=== PATIENT | male | born 1940 | race Caucasian/White ===

== ENCOUNTER 2021-10-20 11:20 | Emergency (ER) | payer MEDICARE, BC ==
[2021-10-20 12:37] LABS: CORONAVIRUS COVID-19 NAA POSITIVE (NEGATIVE)
[2021-10-20] MEDS ORDERED: diphenhydrAMINE 50 MG/ML SDV IVPUSH PRN (12:58)
[2021-10-20] MEDS ORDERED: Sodium Chloride 0.9% 500 ML IV ONE (12:58)
[2021-10-20] MEDS ORDERED: Famotidine 20 MG/2 ML SDV IVPUSH PRN (12:58)
[2021-10-20] MEDS ORDERED: EPINEPHrine 1 MG/ML SDV IM PRN (12:58)
[2021-10-20] MEDS ORDERED: methylPREDNISolone Sodium Succinate 125 MG/2 ML SDV IVPUSH PRN (12:58)
[2021-10-20] MEDS ORDERED: Sodium Chloride 0.9% 10 ML Syringe FLUSH SCH (13:00)
== END 2021-10-20 15:10 | disposition home or self-care (01) ==
LOC: JD.ED 11:20
DX: U07.1 COVID-19 (principal); Z88.0 Allergy status to penicillin
CPT/HCPCS: 0241U; 36415; 80053; 83735; 85025; 86140; 96360; 99283; J3490; J7030; M0222; Q0222

== ENCOUNTER 2022-05-21 08:42 | Inpatient (IN) | payer MEDICARE, BC ==
[2022-05-21] MEDS ORDERED: Sodium Chloride 0.9% 10 ML Syringe FLUSH PRN (08:50)
[2022-05-21] MEDS ORDERED: Furosemide 40 MG/4 ML VIAL IVPUSH ONE ×2 (10:27→12:01)
[2022-05-21] MEDS ORDERED: Heparin Sodium 5,000 Units/ML Vial IVPUSH ONE (12:03)
[2022-05-21] MEDS ORDERED: Docusate Sodium 100 MG Cap PO PRN (12:10)
[2022-05-21] MEDS ORDERED: Ondansetron 4 MG/2 ML SDV IV PRN (12:10)
[2022-05-21] MEDS ORDERED: Acetaminophen 325 MG Tab PO PRN (12:10)
[2022-05-21] MEDS ORDERED: Heparin Sodium 5,000 Units/ML Vial SUBCUT SCH (12:15)
[2022-05-21] MEDS ORDERED: Heparin Sodium/D5W 25,000 UNITS/500 ML BAG IV SCH (12:15)
[2022-05-21] MEDS: Furosemide 100 MG in Sodium Chloride 0.9% 90 ML IV SCH (12:52)
[2022-05-21] MEDS ORDERED: Aspirin 325 MG Tab.EC PO ONE (13:00)
[2022-05-21] MEDS: Insulin Lispro 100 Unit/ML 3 ML KwikPen SUBCUT SCH (17:11)
[2022-05-21] MEDS ORDERED: Warfarin Sliding Scale PO SCH (18:00)
[2022-05-21] MEDS: Metoprolol Tartrate 25 MG Tab PO SCH (20:34)
[2022-05-21] MEDS ORDERED: Doxazosin 2 MG Tab PO SCH (21:00)
[2022-05-22] MEDS: Insulin Lispro 100 Unit/ML 3 ML KwikPen SUBCUT SCH ×2 (00:02→07:30)
[2022-05-22] MEDS: Metoprolol Tartrate 25 MG Tab PO SCH (08:02)
[2022-05-22] MEDS ORDERED: atorvaSTATin 20 MG Tab PO SCH (09:00)
[2022-05-22] MEDS ORDERED: Aspirin 81 MG Tab.Chew PO SCH (09:00)
[2022-05-22] MEDS: Furosemide 100 MG in Sodium Chloride 0.9% 90 ML IV SCH (10:46)
[2022-05-22] MEDS ORDERED: Warfarin 2.5 MG Tab PO SCH (18:00)
== END 2022-05-22 13:14 | DRG 280 ==
LOC: JD.ED 08:42 → JD.MS 11:29
PROVIDERS: ADMIT Hospitalist; ATTEND Hospitalist
DX: I50.9 Heart failure, unspecified (principal); R09.02 Hypoxemia; I13.0 Hypertensive heart and chronic kidney disease with heart failure and stage 1 through stage 4 chronic kidney disease, or unspecified chronic kidney disease; I50.43 Acute on chronic combined systolic (congestive) and diastolic (congestive) heart failure; I21.4 Non-ST elevation (NSTEMI) myocardial infarction; N17.9 Acute kidney failure, unspecified; N18.9 Chronic kidney disease, unspecified; N18.4 Chronic kidney disease, stage 4 (severe); I44.7 Left bundle-branch block, unspecified; I44.0 Atrioventricular block, first degree; Z66 Do not resuscitate; F41.9 Anxiety disorder, unspecified; N40.0 Benign prostatic hyperplasia without lower urinary tract symptoms; I25.10 Atherosclerotic heart disease of native coronary artery without angina pectoris; M10.9 Gout, unspecified; G47.00 Insomnia, unspecified; E11.22 Type 2 diabetes mellitus with diabetic chronic kidney disease; D63.1 Anemia in chronic kidney disease; I87.2 Venous insufficiency (chronic) (peripheral); F32.89 Other specified depressive episodes; E78.5 Hyperlipidemia, unspecified; E66.9 Obesity, unspecified; I08.3 Combined rheumatic disorders of mitral, aortic and tricuspid valves; Z79.84 Long term (current) use of oral hypoglycemic drugs; Z88.0 Allergy status to penicillin; Z86.718 Personal history of other venous thrombosis and embolism; Z85.828 Personal history of other malignant neoplasm of skin; Z79.899 Other long term (current) drug therapy; Z79.01 Long term (current) use of anticoagulants; Z98.890 Other specified postprocedural states; Z68.32 Body mass index [BMI] 32.0-32.9, adult
CPT/HCPCS: 36415; 71045; 71045-26; 80048; 80053; 82947; 83735; 83880; 84484; 85025; 85379; 85610; 85730; 93005; 93010; 93307; 94760; 94761; 96374; 99284; 99285-25; A9270-GY; J1815; J1940; J3490

== ENCOUNTER 2022-09-26 10:52 | Inpatient (IN) | payer MEDICARE, BC ==
[2022-09-26] MEDS ORDERED: Sodium Chloride 0.9% 10 ML Syringe FLUSH PRN (11:05)
[2022-09-26 11:11] LABS: BASOPHILS ABSOLUTE AUTO 0.06 K/mm3 (0.01-0.08); BASOPHILS PERCENT AUTO 0.6 % (0.1-1.2); EOSINOPHILS ABSOLUTE AUTO 0.46 K/mm3 (0.04-0.54); EOSINOPHILS PERCENT AUTO 4.5 (0.8-7.0); HEMATOCRIT 31.4 % (40.1-51.0); HEMOGLOBIN 10.1 gm/dl (13.7-17.5); IMMATURE GRAN ABSOLUTE AUTO 0.02 K/mm3 (0.00-0.10); IMMATURE GRAN PERCENT AUTO 0.2 % (<=1.0); LYMPHOCYTES ABSOLUTE AUTO 1.11 K/mm3 (1.32-3.57); MEAN CORPUSCULAR HEMOGLOBIN 27.3 pg (25.7-32.2); MEAN CORPUSCULAR HGB CONC 32.2 g/dl (32.2-35.5); MEAN CORPUSCULAR VOLUME 84.9 fl (79.0-92.2); MEAN PLATELET VOLUME 9.9 fl (9.4-12.3); MONOCYTES ABSOLUTE AUTO 1.37 K/mm3 (0.30-0.82); MONOCYTES PERCENT AUTO 13.5 % (5.3-12.2); NEUTROPHILS ABSOLUTE AUTO 7.11 K/mm3 (1.78-5.38); NEUTROPHILS PERCENT AUTO 70.2 % (34.0-67.9); PLATELET COUNT,PLT 204 K/mm3 (163-337); WHITE BLOOD CELL COUNT,WBC 10.13 K/mm3 (4.23-9.07)
[2022-09-26 11:40] LABS: A/G RATIO 0.7 (1-2); ALBUMIN 2.9 g/dl (3.4-5.0); ANION GAP 14.6 (5-15); BILIRUBIN TOTAL 0.7 mg/dL (0.2-1.0); BUN/CREATININE RATIO 13.5 (14-18); CREATININE 2.6 mg/dL (0.7-1.3); EST CRCL DRUG DOSING (CG) 21.53 mL/min; MAGNESIUM 1.9 mg/dL (1.8-2.4); POTASSIUM,K 3.6 mEq/L (3.5-5.1)
[2022-09-26 11:48] LABS: CORONAVIRUS COVID-19 NAA NEGATIVE (NEGATIVE); INFLUENZA A NAA NEGATIVE (NEGATIVE); RESPIRATORY SYNCYTIAL VIR NAA NEGATIVE (NEGATIVE)
[2022-09-26 11:59] LABS: INR 1.02
[2022-09-26 12:00] LABS: PTT,PARTIAL THROMBOPLSTIN TIME 30.2 SECONDS (21.7-31.4)
[2022-09-26 12:19] LABS: PROTHROMBIN TIME 10.9 SECONDS (9.7-12.0)
[2022-09-26] MEDS ORDERED: Bumetanide 1 MG/4 ML MDV IVPUSH ONE (14:30)
[2022-09-26] MEDS ORDERED: Sennosides/Docusate Sodium 50-8.6 MG Tab PO PRN (14:51)
[2022-09-26] MEDS ORDERED: Polyethylene Glycol 3350 Powder 17 GM Packet PO PRN (14:51)
[2022-09-26] MEDS ORDERED: Docusate Sodium 100 MG Cap PO PRN (14:51)
[2022-09-26] MEDS ORDERED: ERGOCALCIFEROL 1.25 MG PO SCH (15:00)
[2022-09-26] MEDS ORDERED: Warfarin 5 MG Tab PO SCH (15:00)
[2022-09-26] MEDS ORDERED: Glucose Gel 15 GM in 37.5 GM Tube PO PRN (15:48)
[2022-09-26 16:21] LABS: HEMOGLOBIN A1C 6.6 %
[2022-09-26] MEDS: Insulin Lispro 100 Unit/ML 3 ML KwikPen SUBCUT SCH ×2 (18:02→20:43)
[2022-09-26] MEDS: Sodium Bicarbonate 650 MG Tab PO SCH (20:39)
[2022-09-26] MEDS: Doxazosin 2 MG Tab PO SCH (20:39)
[2022-09-26] MEDS: Apixaban 2.5 MG Tab PO SCH (20:39)
[2022-09-26] MEDS: Metoprolol Tartrate 25 MG Tab PO SCH (20:40)
[2022-09-26] MEDS ORDERED: METRONIDAZOLE TOP SCH (21:00)
[2022-09-26] MEDS ORDERED: Apixaban 2.5 MG Tab PO SCH (21:00)
[2022-09-26] MEDS ORDERED: traZODone 50 MG Tab PO PRN (21:00)
[2022-09-26] MEDS ORDERED: Insulin Glargine,Human Rec. Analog 100 Units/ML 3 ML Pen SUBCUT SCH (21:00)
[2022-09-27 05:18] LABS: BASOPHILS ABSOLUTE AUTO 0.04 K/mm3 (0.01-0.08); BASOPHILS PERCENT AUTO 0.4 % (0.1-1.2); EOSINOPHILS ABSOLUTE AUTO 0.02 K/mm3 (0.04-0.54); EOSINOPHILS PERCENT AUTO 0.2 (0.8-7.0); HEMATOCRIT 31.2 % (40.1-51.0); HEMOGLOBIN 10.1 gm/dl (13.7-17.5); IMMATURE GRAN ABSOLUTE AUTO 0.01 K/mm3 (0.00-0.10); IMMATURE GRAN PERCENT AUTO 0.1 % (<=1.0); LYMPHOCYTES ABSOLUTE AUTO 0.69 K/mm3 (1.32-3.57); LYMPHOCYTES PERCENT AUTO 7.1 % (21.8-53.1); MEAN CORPUSCULAR HEMOGLOBIN 27.6 pg (25.7-32.2); MEAN CORPUSCULAR HGB CONC 32.4 g/dl (32.2-35.5); MEAN CORPUSCULAR VOLUME 85.2 fl (79.0-92.2); MEAN PLATELET VOLUME 10.6 fl (9.4-12.3); MONOCYTES ABSOLUTE AUTO 1.57 K/mm3 (0.30-0.82); MONOCYTES PERCENT AUTO 16.2 % (5.3-12.2); NEUTROPHILS ABSOLUTE AUTO 7.34 K/mm3 (1.78-5.38); PLATELET COUNT,PLT 208 K/mm3 (163-337); RED BLOOD CELL COUNT 3.66 M/mm3 (4.63-6.08); WHITE BLOOD CELL COUNT,WBC 9.67 K/mm3 (4.23-9.07)
[2022-09-27 05:38] LABS: ANION GAP 15.7 (5-15); BUN/CREATININE RATIO 14.4 (14-18); CALCIUM 8.8 mg/dL (8.5-10.1); CREATININE 2.5 mg/dL (0.7-1.3); EST CRCL DRUG DOSING (CG) 22.39 mL/min; MAGNESIUM 1.9 mg/dL (1.8-2.4); POTASSIUM,K 3.7 mEq/L (3.5-5.1)
[2022-09-27 06:16] LABS: INR 1.03; SLIDE REVIEW ABNORMAL SMEAR
[2022-09-27] MEDS: Insulin Lispro 100 Unit/ML 3 ML KwikPen SUBCUT SCH ×4 (07:41→21:35)
[2022-09-27] MEDS ORDERED: Bumetanide 1 MG/4 ML MDV IVPUSH ONE ×2 (07:59→14:04)
[2022-09-27] MEDS: atorvaSTATin 20 MG Tab PO SCH (08:18)
[2022-09-27] MEDS: Allopurinol 100 MG Tab PO SCH (08:18)
[2022-09-27] MEDS: Metoprolol Tartrate 25 MG Tab PO SCH ×2 (08:19→20:35)
[2022-09-27] MEDS: Sodium Bicarbonate 650 MG Tab PO SCH ×2 (08:20→20:37)
[2022-09-27] MEDS: amLODIPine 10 MG Tab PO SCH (08:20)
[2022-09-27] MEDS: Apixaban 2.5 MG Tab PO SCH ×2 (08:20→20:34)
[2022-09-27] MEDS: Calcitriol 0.25 MCG Cap PO SCH (08:20)
[2022-09-27] MEDS ORDERED: CLINDAMYCIN PHOSPHATE TOP SCH (09:00)
[2022-09-27] MEDS ORDERED: Losartan 100 MG Tab PO SCH ×2 (09:00)
[2022-09-27] MEDS ORDERED: UBIDECARENONE 60 MG PO SCH (09:00)
[2022-09-27] MEDS: Clopidogrel 75 MG Tab PO SCH (09:19)
[2022-09-27] MEDS ORDERED: Metolazone 2.5 MG Tab PO ONE (14:04)
[2022-09-27] MEDS: Doxazosin 2 MG Tab PO SCH (20:37)
[2022-09-28 05:45] LABS: ANION GAP 12.3 (5-15); BUN/CREATININE RATIO 15.9 (14-18); CALCIUM 8.7 mg/dL (8.5-10.1); CREATININE 2.9 mg/dL (0.7-1.3); EST CRCL DRUG DOSING (CG) 19.3 mL/min; MAGNESIUM 1.8 mg/dL (1.8-2.4); POTASSIUM,K 3.3 mEq/L (3.5-5.1)
[2022-09-28] MEDS ORDERED: Potassium Chloride 20 MEQ Tab.ER PO ONE (08:53)
[2022-09-28] MEDS: Insulin Lispro 100 Unit/ML 3 ML KwikPen SUBCUT SCH ×4 (09:26→21:41)
[2022-09-28] MEDS: Clopidogrel 75 MG Tab PO SCH (09:26)
[2022-09-28] MEDS: Metoprolol Tartrate 25 MG Tab PO SCH ×2 (09:27→21:15)
[2022-09-28] MEDS: Allopurinol 100 MG Tab PO SCH (09:27)
[2022-09-28] MEDS: atorvaSTATin 20 MG Tab PO SCH (09:28)
[2022-09-28] MEDS: amLODIPine 10 MG Tab PO SCH (09:28)
[2022-09-28] MEDS: Sodium Bicarbonate 650 MG Tab PO SCH ×2 (09:28→21:15)
[2022-09-28] MEDS: Apixaban 2.5 MG Tab PO SCH ×2 (09:28→21:15)
[2022-09-28] MEDS: Doxazosin 2 MG Tab PO SCH (21:12)
[2022-09-29 05:52] LABS: ANION GAP 12.5 (5-15); BUN/CREATININE RATIO 17.1 (14-18); CREATININE 2.8 mg/dL (0.7-1.3); EST CRCL DRUG DOSING (CG) 19.99 mL/min; MAGNESIUM 1.8 mg/dL (1.8-2.4); POTASSIUM,K 3.5 mEq/L (3.5-5.1)
[2022-09-29] MEDS: Insulin Lispro 100 Unit/ML 3 ML KwikPen SUBCUT SCH ×4 (08:29→22:05)
[2022-09-29] MEDS: amLODIPine 10 MG Tab PO SCH (08:33)
[2022-09-29] MEDS: atorvaSTATin 20 MG Tab PO SCH (08:33)
[2022-09-29] MEDS: Apixaban 2.5 MG Tab PO SCH ×2 (08:34→21:03)
[2022-09-29] MEDS: Metoprolol Tartrate 25 MG Tab PO SCH ×2 (08:34→21:04)
[2022-09-29] MEDS: Sodium Bicarbonate 650 MG Tab PO SCH ×2 (08:34→21:01)
[2022-09-29] MEDS: Clopidogrel 75 MG Tab PO SCH (08:34)
[2022-09-29] MEDS: Allopurinol 100 MG Tab PO SCH (08:35)
[2022-09-29] MEDS: Bumetanide 1 MG/4 ML MDV IVPUSH SCH ×2 (10:35→15:01)
[2022-09-29] MEDS: Doxazosin 2 MG Tab PO SCH (21:01)
[2022-09-30] MEDS: Bumetanide 1 MG/4 ML MDV IVPUSH SCH ×2 (05:26→13:43)
[2022-09-30 05:43] LABS: ANION GAP 10.4 (5-15); BUN/CREATININE RATIO 18.3 (14-18); CALCIUM 8.7 mg/dL (8.5-10.1); CREATININE 2.9 mg/dL (0.7-1.3); EST CRCL DRUG DOSING (CG) 19.3 mL/min; MAGNESIUM 1.6 mg/dL (1.8-2.4); POTASSIUM,K 3.4 mEq/L (3.5-5.1)
[2022-09-30] MEDS ORDERED: Potassium Chloride 20 MEQ Tab.ER PO ONE (06:07)
[2022-09-30] MEDS: Insulin Lispro 100 Unit/ML 3 ML KwikPen SUBCUT SCH ×4 (07:47→21:52)
[2022-09-30] MEDS: Metoprolol Tartrate 25 MG Tab PO SCH ×2 (08:35→20:42)
[2022-09-30] MEDS: Apixaban 2.5 MG Tab PO SCH ×2 (08:38→20:27)
[2022-09-30] MEDS: amLODIPine 10 MG Tab PO SCH (08:38)
[2022-09-30] MEDS: Clopidogrel 75 MG Tab PO SCH (08:38)
[2022-09-30] MEDS: Sodium Bicarbonate 650 MG Tab PO SCH ×2 (08:38→20:27)
[2022-09-30] MEDS: Calcitriol 0.25 MCG Cap PO SCH (08:39)
[2022-09-30] MEDS: atorvaSTATin 20 MG Tab PO SCH (08:39)
[2022-09-30] MEDS: Allopurinol 100 MG Tab PO SCH (08:39)
[2022-09-30] MEDS ORDERED: Magnesium Sulfate/Water 2 GM in Premix Bag 1 BAG IV ONE (09:00)
[2022-09-30] MEDS ORDERED: Magnesium Sulfate (4.06 MEQ/ML) 5 GM/10 ML SDV IV ONE (09:00)
[2022-09-30] MEDS: guaiFENesin 600 MG Tab.ER PO SCH ×2 (12:01→20:27)
[2022-09-30] MEDS: Metolazone 2.5 MG Tab PO SCH (13:43)
[2022-09-30] MEDS: Doxazosin 2 MG Tab PO SCH (20:26)
[2022-10-01] MEDS: Bumetanide 1 MG/4 ML MDV IVPUSH SCH ×2 (05:18→13:47)
[2022-10-01] MEDS: Metolazone 2.5 MG Tab PO SCH ×2 (05:19→13:47)
[2022-10-01 06:04] LABS: BASOPHILS ABSOLUTE AUTO 0.05 K/mm3 (0.01-0.08); BASOPHILS PERCENT AUTO 0.6 % (0.1-1.2); EOSINOPHILS ABSOLUTE AUTO 0.63 K/mm3 (0.04-0.54); EOSINOPHILS PERCENT AUTO 7.5 (0.8-7.0); HEMATOCRIT 29.2 % (40.1-51.0); HEMOGLOBIN 9.5 gm/dl (13.7-17.5); IMMATURE GRAN ABSOLUTE AUTO 0.01 K/mm3 (0.00-0.10); IMMATURE GRAN PERCENT AUTO 0.1 % (<=1.0); LYMPHOCYTES ABSOLUTE AUTO 1.28 K/mm3 (1.32-3.57); LYMPHOCYTES PERCENT AUTO 15.3 % (21.8-53.1); MEAN CORPUSCULAR HEMOGLOBIN 27.7 pg (25.7-32.2); MEAN CORPUSCULAR HGB CONC 32.5 g/dl (32.2-35.5); MEAN CORPUSCULAR VOLUME 85.1 fl (79.0-92.2); MEAN PLATELET VOLUME 10.6 fl (9.4-12.3); MONOCYTES ABSOLUTE AUTO 1.29 K/mm3 (0.30-0.82); MONOCYTES PERCENT AUTO 15.4 % (5.3-12.2); NEUTROPHILS ABSOLUTE AUTO 5.09 K/mm3 (1.78-5.38); NEUTROPHILS PERCENT AUTO 61.1 % (34.0-67.9); PLATELET COUNT,PLT 240 K/mm3 (163-337); RED BLOOD CELL COUNT 3.43 M/mm3 (4.63-6.08); WHITE BLOOD CELL COUNT,WBC 8.35 K/mm3 (4.23-9.07)
[2022-10-01 06:10] LABS: ANION GAP 9.4 (5-15); BUN/CREATININE RATIO 20.4 (14-18); CALCIUM 9.2 mg/dL (8.5-10.1); CREATININE 2.8 mg/dL (0.7-1.3); EST CRCL DRUG DOSING (CG) 19.99 mL/min; POTASSIUM,K 3.4 mEq/L (3.5-5.1)
[2022-10-01] MEDS: Insulin Lispro 100 Unit/ML 3 ML KwikPen SUBCUT SCH ×4 (07:02→21:06)
[2022-10-01] MEDS: guaiFENesin 600 MG Tab.ER PO SCH ×2 (08:12→21:03)
[2022-10-01] MEDS: atorvaSTATin 20 MG Tab PO SCH (08:13)
[2022-10-01] MEDS: Sodium Bicarbonate 650 MG Tab PO SCH ×2 (08:13→21:02)
[2022-10-01] MEDS: Clopidogrel 75 MG Tab PO SCH (08:13)
[2022-10-01] MEDS: Apixaban 2.5 MG Tab PO SCH ×2 (08:13→21:03)
[2022-10-01] MEDS: Allopurinol 100 MG Tab PO SCH (08:13)
[2022-10-01] MEDS: amLODIPine 10 MG Tab PO SCH (09:35)
[2022-10-01] MEDS: Metoprolol Tartrate 25 MG Tab PO SCH ×2 (09:36→23:45)
[2022-10-01] MEDS: Potassium Chloride 10 MEQ in Premix Bag 1 BAG IV SCH ×4 (09:41→14:57)
[2022-10-01] MEDS: diphenhydrAMINE/Zinc Acetate 2% Crm 28.4 GM Tube TOP PRN ×2 (13:46→21:04)
[2022-10-01] MEDS: Doxazosin 2 MG Tab PO SCH (21:03)
[2022-10-02] MEDS: diphenhydrAMINE/Zinc Acetate 2% Crm 28.4 GM Tube TOP PRN ×2 (04:14→14:14)
[2022-10-02 05:46] LABS: ANION GAP 11.6 (5-15); BLOOD UREA NITROGEN,BUN 56 mg/dL (7-18); BUN/CREATININE RATIO 19.3 (14-18); CALCIUM 9.4 mg/dL (8.5-10.1); CARBON DIOXIDE,CO2 32 mEq/L (21-32); CHLORIDE,CL 100 mEq/L (98-107); CREATININE 2.9 mg/dL (0.7-1.3); ESTIMATED GFR 21 mL/min (>60); GLUCOSE RANDOM 132 mg/dL (70-99); POTASSIUM,K 3.6 mEq/L (3.5-5.1); SODIUM,NA 140 mEq/L (136-145)
[2022-10-02] MEDS: Bumetanide 1 MG/4 ML MDV IVPUSH SCH ×2 (06:06→14:13)
[2022-10-02] MEDS: Metolazone 2.5 MG Tab PO SCH ×2 (06:06→14:13)
[2022-10-02] MEDS: Insulin Lispro 100 Unit/ML 3 ML KwikPen SUBCUT SCH ×4 (07:22→20:35)
[2022-10-02] MEDS: Metoprolol Tartrate 25 MG Tab PO SCH ×2 (09:21→20:25)
[2022-10-02] MEDS: Calcitriol 0.25 MCG Cap PO SCH (09:21)
[2022-10-02] MEDS: Clopidogrel 75 MG Tab PO SCH (09:21)
[2022-10-02] MEDS: atorvaSTATin 20 MG Tab PO SCH (09:22)
[2022-10-02] MEDS: Apixaban 2.5 MG Tab PO SCH ×2 (09:22→20:24)
[2022-10-02] MEDS: Sodium Bicarbonate 650 MG Tab PO SCH ×2 (09:22→20:24)
[2022-10-02] MEDS: amLODIPine 10 MG Tab PO SCH (09:22)
[2022-10-02] MEDS: Allopurinol 100 MG Tab PO SCH (09:22)
[2022-10-02] MEDS: guaiFENesin 600 MG Tab.ER PO SCH ×2 (09:23→20:24)
[2022-10-02] MEDS: Doxazosin 2 MG Tab PO SCH (20:24)
[2022-10-03] MEDS: diphenhydrAMINE/Zinc Acetate 2% Crm 28.4 GM Tube TOP PRN ×2 (00:01→17:40)
[2022-10-03] MEDS ORDERED: diphenhydrAMINE 25 MG Cap PO ONE (04:32)
[2022-10-03] MEDS: Metolazone 2.5 MG Tab PO SCH ×2 (05:01→13:43)
[2022-10-03] MEDS: Bumetanide 1 MG/4 ML MDV IVPUSH SCH ×2 (05:01→13:42)
[2022-10-03] MEDS: Insulin Lispro 100 Unit/ML 3 ML KwikPen SUBCUT SCH ×4 (06:49→20:38)
[2022-10-03 06:58] LABS: ANION GAP 12.4 (5-15); BLOOD UREA NITROGEN,BUN 64 mg/dL (7-18); CALCIUM 9.2 mg/dL (8.5-10.1); CARBON DIOXIDE,CO2 31 mEq/L (21-32); CHLORIDE,CL 101 mEq/L (98-107); CREATININE 3.2 mg/dL (0.7-1.3); ESTIMATED GFR 18 mL/min (>60); GLUCOSE RANDOM 130 mg/dL (70-99); POTASSIUM,K 3.4 mEq/L (3.5-5.1); SODIUM,NA 141 mEq/L (136-145)
[2022-10-03] MEDS: Sodium Bicarbonate 650 MG Tab PO SCH ×2 (09:53→20:38)
[2022-10-03] MEDS: Metoprolol Tartrate 25 MG Tab PO SCH ×2 (09:53→20:37)
[2022-10-03] MEDS: Allopurinol 100 MG Tab PO SCH (09:53)
[2022-10-03] MEDS: amLODIPine 10 MG Tab PO SCH (09:54)
[2022-10-03] MEDS: atorvaSTATin 20 MG Tab PO SCH (09:54)
[2022-10-03] MEDS: Clopidogrel 75 MG Tab PO SCH (09:54)
[2022-10-03] MEDS: Apixaban 2.5 MG Tab PO SCH ×2 (09:54→20:38)
[2022-10-03] MEDS: guaiFENesin 600 MG Tab.ER PO SCH ×2 (09:55→20:38)
[2022-10-03] MEDS: Doxazosin 2 MG Tab PO SCH (20:37)
[2022-10-03] MEDS: Acetaminophen 325 MG Tab PO PRN (21:45)
[2022-10-04] MEDS: Metolazone 2.5 MG Tab PO SCH ×2 (05:43→13:20)
[2022-10-04] MEDS: Bumetanide 1 MG/4 ML MDV IVPUSH SCH ×2 (05:43→13:20)
[2022-10-04] MEDS: Acetaminophen 325 MG Tab PO PRN (05:43)
[2022-10-04 07:15] LABS: ANION GAP 11.4 (5-15); BLOOD UREA NITROGEN,BUN 75 mg/dL (7-18); BUN/CREATININE RATIO 19.7 (14-18); CARBON DIOXIDE,CO2 32 mEq/L (21-32); CHLORIDE,CL 100 mEq/L (98-107); CREATININE 3.8 mg/dL (0.7-1.3); ESTIMATED GFR 15 mL/min (>60); GLUCOSE RANDOM 146 mg/dL (70-99); POTASSIUM,K 3.4 mEq/L (3.5-5.1); SODIUM,NA 140 mEq/L (136-145)
[2022-10-04] MEDS: Insulin Lispro 100 Unit/ML 3 ML KwikPen SUBCUT SCH ×2 (07:39→13:10)
[2022-10-04] MEDS ORDERED: Potassium Chloride 20 MEQ Tab.ER PO ONE (07:39)
[2022-10-04] MEDS: Sodium Bicarbonate 650 MG Tab PO SCH (08:04)
[2022-10-04] MEDS: amLODIPine 10 MG Tab PO SCH (08:05)
[2022-10-04] MEDS: Metoprolol Tartrate 25 MG Tab PO SCH (08:05)
[2022-10-04] MEDS: Calcitriol 0.25 MCG Cap PO SCH (08:05)
[2022-10-04] MEDS: Apixaban 2.5 MG Tab PO SCH (08:06)
[2022-10-04] MEDS: Allopurinol 100 MG Tab PO SCH (08:06)
[2022-10-04] MEDS: Clopidogrel 75 MG Tab PO SCH (08:06)
[2022-10-04] MEDS: atorvaSTATin 20 MG Tab PO SCH (08:06)
[2022-10-04] MEDS: guaiFENesin 600 MG Tab.ER PO SCH (08:06)
== END 2022-10-04 17:09 | disposition home or self-care (01) | DRG 291 ==
LOC: JD.ED 10:52 → UNDOADMIN 14:12 → JD.MS 14:12
PROVIDERS: ADMIT Emergency Medicine; ATTEND Internal Medicine
DX: I13.0 Hypertensive heart and chronic kidney disease with heart failure and stage 1 through stage 4 chronic kidney disease, or unspecified chronic kidney disease (principal); I50.43 Acute on chronic combined systolic (congestive) and diastolic (congestive) heart failure; J96.01 Acute respiratory failure with hypoxia; J90 Pleural effusion, not elsewhere classified; Q25.46 Tortuous aortic arch; N17.9 Acute kidney failure, unspecified; Z66 Do not resuscitate; E11.22 Type 2 diabetes mellitus with diabetic chronic kidney disease; I50.9 Heart failure, unspecified; M19.90 Unspecified osteoarthritis, unspecified site; I11.0 Hypertensive heart disease with heart failure; Z20.822 Contact with and (suspected) exposure to COVID-19; N18.32 Chronic kidney disease, stage 3b; I25.10 Atherosclerotic heart disease of native coronary artery without angina pectoris; I25.2 Old myocardial infarction; I08.3 Combined rheumatic disorders of mitral, aortic and tricuspid valves; Z88.0 Allergy status to penicillin; E11.9 Type 2 diabetes mellitus without complications; Z79.2 Long term (current) use of antibiotics; M10.9 Gout, unspecified; E66.9 Obesity, unspecified; Z86.16 Personal history of COVID-19; Z85.820 Personal history of malignant melanoma of skin; N40.0 Benign prostatic hyperplasia without lower urinary tract symptoms; Z99.81 Dependence on supplemental oxygen; Z79.01 Long term (current) use of anticoagulants; Z79.84 Long term (current) use of oral hypoglycemic drugs; Z79.899 Other long term (current) drug therapy; Z86.718 Personal history of other venous thrombosis and embolism
CPT/HCPCS: 0241U; 36415; 71045; 80048; 80053; 82947; 83036; 83735; 83880; 84484; 85025; 85610; 85730; 93005; 93306; 94660; 94761; 99285; 93010; 99223; 99231; 99232; 99233; 99239; A9270-GY; J1815; J3475; J3480; J3490

== ENCOUNTER 2023-11-07 15:03 | Emergency (ER) | payer MEDICARE, MEDICAID ==
[2023-11-07 15:39] LABS: BASOPHILS PERCENT AUTO 0.2 % (0.0-1.0); EOSINOPHILS PERCENT AUTO 0.2 % (0.0-6.0); HEMATOCRIT 40.7 % (42.0-52.0); HEMOGLOBIN 14.3 gm/dl (14.0-18.0); IMMATURE GRAN ABSOLUTE AUTO 0.06 K/mm3 (0.00-0.05); IMMATURE GRAN PERCENT AUTO 0.4 % (0.0-0.4); LYMPHOCYTES ABSOLUTE AUTO 0.8 K/mm3 (1.0-4.8); MEAN CORPUSCULAR HGB CONC 35.1 g/dl (32.0-36.0); MEAN CORPUSCULAR VOLUME 88.3 fl (83.0-99.0); MEAN PLATELET VOLUME 10.6 fl (9.4-12.4); MONOCYTES ABSOLUTE AUTO 1.4 K/mm3 (0.0-0.8); MONOCYTES PERCENT AUTO 8.9 % (0.0-8.0); NEUTROPHILS ABSOLUTE AUTO 13.7 K/mm3 (1.8-7.7); NEUTROPHILS PERCENT AUTO 85.3 % (41.0-71.0); PLATELET COUNT,PLT 211 K/mm3 (150-400); RED BLOOD CELL COUNT 4.61 M/mm3 (4.52-5.90); WHITE BLOOD CELL COUNT,WBC 16.12 K/mm3 (3.9-11.3)
[2023-11-07 15:52] LABS: A/G RATIO 0.9 (1-2); ALBUMIN 3.8 g/dl (3.4-5.0); ANION GAP 18.6 (5-15); BILIRUBIN TOTAL 0.8 mg/dL (0.2-1.0); CALCIUM 10.6 mg/dL (8.5-10.1); CREATININE 5.3 mg/dL (0.7-1.3); EST CRCL DRUG DOSING (CG) 10.19 mL/min; MAGNESIUM 2.6 mg/dL (1.8-2.4); POTASSIUM,K 3.6 mEq/L (3.5-5.1); PROTEIN TOTAL,TP 8.2 g/dl (6.4-8.2)
[2023-11-07] MEDS: Sodium Chloride 0.9% 10 ML Syringe FLUSH PRN (16:10)
[2023-11-07] MEDS: Sodium Chloride 0.9% 500 ML IV ONE (16:11)
[2023-11-07 16:26] LABS: BUN/CREATININE RATIO 30.9 (14-18)
[2023-11-07 17:01] LABS: CORONAVIRUS COVID-19 NAA NEGATIVE (NEGATIVE); INFLUENZA A NAA NEGATIVE (NEGATIVE); RESPIRATORY SYNCYTIAL VIR NAA NEGATIVE (NEGATIVE)
[2023-11-07 18:13] LABS: APPEARANCE,URINE CLEAR (Clear); BILIRUBIN,URINE NEGATIVE (Negative); COLOR,URINE YELLOW (Yellow); GLUCOSE,URINE TRACE (Negative); KETONES,URINE NEGATIVE (Negative); LEUKOCYTE ESTERASE,URINE NEGATIVE (Negative); NITRITE,URINE NEGATIVE (Negative); OCCULT BLOOD,URINE NEGATIVE (Negative); PH,URINE 5.5 (5.0-8.0); PROTEIN,URINE NEGATIVE (Negative); UROBILINOGEN,URINE 0.2 (0.2-1.0)
[2023-11-07] MEDS: cefTRIAXone 1 GM in Sodium Chloride 0.9% 100 ML IV ONE (19:48)
== END 2023-11-07 20:22 ==
LOC: JD.ED 15:03
DX: K59.00 Constipation, unspecified (principal); R53.1 Weakness; R05.9 Cough, unspecified; I13.0 Hypertensive heart and chronic kidney disease with heart failure and stage 1 through stage 4 chronic kidney disease, or unspecified chronic kidney disease; I50.9 Heart failure, unspecified; N18.9 Chronic kidney disease, unspecified; E11.22 Type 2 diabetes mellitus with diabetic chronic kidney disease; D72.829 Elevated white blood cell count, unspecified; E83.52 Hypercalcemia; E66.9 Obesity, unspecified; Z68.28 Body mass index [BMI] 28.0-28.9, adult; Z86.16 Personal history of COVID-19; Z90.49 Acquired absence of other specified parts of digestive tract; Z79.899 Other long term (current) drug therapy; Z88.0 Allergy status to penicillin
CPT/HCPCS: 0241U; 36415; 71045; 74176; 80053; 81003; 82947; 83690; 83735; 85025; 93005; 96361; 96365; 99285; J0696; J3490; J7030; 93010

== ENCOUNTER 2024-06-09 14:37 | Emergency (ER) | payer MEDICAID, MEDICARE ==
[2024-06-09] MEDS ORDERED: Sodium Chloride 0.9% 10 ML Syringe FLUSH PRN (15:14)
[2024-06-09 15:29] LABS: BASOPHILS PERCENT AUTO 0.2 % (0.0-1.0); EOSINOPHILS PERCENT AUTO 0.1 % (0.0-6.0); HEMATOCRIT 34.4 % (42.0-52.0); HEMOGLOBIN 11.2 gm/dl (14.0-18.0); IMMATURE GRAN ABSOLUTE AUTO 0.08 K/mm3 (0.00-0.05); IMMATURE GRAN PERCENT AUTO 0.5 % (0.0-0.4); LYMPHOCYTES ABSOLUTE AUTO 0.8 K/mm3 (1.0-4.8); LYMPHOCYTES PERCENT AUTO 5.6 % (24.0-44.0); MEAN CORPUSCULAR HEMOGLOBIN 29.3 pg (28.0-32.0); MEAN CORPUSCULAR HGB CONC 32.6 g/dl (32.0-36.0); MEAN CORPUSCULAR VOLUME 90.1 fl (83.0-99.0); MEAN PLATELET VOLUME 11.4 fl (9.4-12.4); MONOCYTES ABSOLUTE AUTO 1.5 K/mm3 (0.0-0.8); MONOCYTES PERCENT AUTO 10.2 % (0.0-8.0); NEUTROPHILS ABSOLUTE AUTO 12.5 K/mm3 (1.8-7.7); NEUTROPHILS PERCENT AUTO 83.4 % (41.0-71.0); PLATELET COUNT,PLT 196 K/mm3 (150-400); RED BLOOD CELL COUNT 3.82 M/mm3 (4.52-5.90); WHITE BLOOD CELL COUNT,WBC 15.01 K/mm3 (3.9-11.3)
[2024-06-09 15:49] LABS: A/G RATIO 0.7 (1-2); ALBUMIN 3.1 g/dl (3.4-5.0); ANION GAP 21.9 (5-15); BILIRUBIN TOTAL 1.2 mg/dL (0.2-1.0); BUN/CREATININE RATIO 20.8 (14-18); CALCIUM 10.1 mg/dL (8.5-10.1); EST CRCL DRUG DOSING (CG) 13.5 mL/min; MAGNESIUM 2.5 mg/dL (1.8-2.4); PROTEIN TOTAL,TP 7.9 g/dl (6.4-8.2); TSH 3.922 uIU/mL (0.358-3.74)
[2024-06-09 15:57] LABS: POTASSIUM,K 5.9 mEq/L (3.5-5.1)
[2024-06-09] MEDS ORDERED: Sodium Bicarbonate 4.2% 2.5 MEQ/5 ML SDV IVPUSH ONE (16:13)
[2024-06-09] MEDS: Furosemide 40 MG/4 ML VIAL IVPUSH ONE (16:26)
[2024-06-09] MEDS: Calcium Gluconate 10% 1 GM/10 ML SDV IVPUSH ONE (16:26)
[2024-06-09] MEDS: Albuterol 0.083% 2.5 MG/3 ML Neb Soln NEB ONE (16:31)
[2024-06-09 16:38] LABS: T4 FREE 1.13 ng/dL (0.76-1.46)
[2024-06-09] MEDS: Insulin Regular, Human 100 Units/ML 10 ML Vial IV ONE (16:38)
[2024-06-09 16:42] LABS: CORONAVIRUS COVID-19 NAA NEGATIVE (NEGATIVE); INFLUENZA A NAA NEGATIVE (NEGATIVE); RESPIRATORY SYNCYTIAL VIR NAA NEGATIVE (NEGATIVE)
[2024-06-09] MEDS: Sodium Bicarbonate 8.4% 50 MEQ/50 ML Syringe IVPUSH ONE (16:42)
== END 2024-06-09 17:20 ==
LOC: JD.ED 14:37
DX: I13.0 Hypertensive heart and chronic kidney disease with heart failure and stage 1 through stage 4 chronic kidney disease, or unspecified chronic kidney disease (principal); I50.9 Heart failure, unspecified; I45.9 Conduction disorder, unspecified; R00.1 Bradycardia, unspecified; E87.5 Hyperkalemia; R79.89 Other specified abnormal findings of blood chemistry; N18.9 Chronic kidney disease, unspecified; E66.9 Obesity, unspecified; E11.22 Type 2 diabetes mellitus with diabetic chronic kidney disease; Z88.0 Allergy status to penicillin; Z79.899 Other long term (current) drug therapy; Z86.16 Personal history of COVID-19; Z90.49 Acquired absence of other specified parts of digestive tract; Z68.31 Body mass index [BMI] 31.0-31.9, adult
CPT/HCPCS: 0241U; 36415; 71045; 80053; 82947; 83735; 83880; 84439; 84443; 84484; 85025; 87040; 93005; 94640; 96374; 96375; 99285; A9270; J0612; J1815; J1940; 93010; J3490

== ENCOUNTER 2024-06-29 14:51 | Emergency (ER) | payer MEDICARE ==
[2024-06-29] MEDS ORDERED: Sodium Chloride 0.9% 10 ML Syringe FLUSH PRN (15:45)
== END 2024-06-29 15:53 | disposition home or self-care (01) ==
LOC: JD.ED 14:51
DX: E11.22 Type 2 diabetes mellitus with diabetic chronic kidney disease (principal); N18.5 Chronic kidney disease, stage 5; I11.0 Hypertensive heart disease with heart failure; I50.9 Heart failure, unspecified; E66.9 Obesity, unspecified; Z88.0 Allergy status to penicillin; Z79.899 Other long term (current) drug therapy; Z86.16 Personal history of COVID-19; Z90.49 Acquired absence of other specified parts of digestive tract
CPT/HCPCS: 99284

== ENCOUNTER 2024-09-27 11:19 | Emergency (ER) | payer MEDICARE ==
[2024-09-27] MEDS ORDERED: Sodium Chloride 0.9% 10 ML Syringe FLUSH PRN (11:53)
[2024-09-27 12:06] LABS: BASOPHILS ABSOLUTE AUTO 0.0 K/mm3 (0.0-0.2); BASOPHILS PERCENT AUTO 0.6 % (0.0-1.0); EOSINOPHILS ABSOLUTE AUTO 0.3 K/mm3 (0.0-0.4); EOSINOPHILS PERCENT AUTO 3.5 % (0.0-6.0); IMMATURE GRAN ABSOLUTE AUTO 0.02 K/mm3 (0.00-0.05); IMMATURE GRAN PERCENT AUTO 0.3 % (0.0-0.4); LYMPHOCYTES ABSOLUTE AUTO 1.2 K/mm3 (1.0-4.8); LYMPHOCYTES PERCENT AUTO 17.2 % (24.0-44.0); MEAN PLATELET VOLUME 10.5 fl (9.4-12.4); MONOCYTES ABSOLUTE AUTO 1.0 K/mm3 (0.0-0.8); MONOCYTES PERCENT AUTO 14.4 % (0.0-8.0); NEUTROPHILS ABSOLUTE AUTO 4.6 K/mm3 (1.8-7.7); NEUTROPHILS PERCENT AUTO 64.0 % (41.0-71.0); NRBC ABSOLUTE 0.00 (0.00-0.02); NRBC PERCENT 0.0 % (0.0-0.2); PLATELET COUNT,PLT 141 K/mm3 (150-400); RED BLOOD CELL COUNT 3.74 M/mm3 (4.52-5.90); WHITE BLOOD CELL COUNT,WBC 7.20 K/mm3 (3.9-11.3)
[2024-09-27 12:41] LABS: A/G RATIO 0.9 (1-2); ALANINE AMINOTRANSFERASE,ALT 16.0 U/L (16-63); ASPARTATE AMNIOTRANSFERASE,AST 16.0 U/L (15-37); BILIRUBIN TOTAL 0.5 mg/dL (0.2-1.0); BLOOD UREA NITROGEN,BUN 74.0 mg/dL (7-18); CARBON DIOXIDE,CO2 27.0 mEq/L (21-32); CHLORIDE,CL 104.0 mEq/L (98-107); CREATININE 3.3 mg/dL (0.7-1.3); EST CRCL DRUG DOSING (CG) 16.9 mL/min; ESTIMATED GFR 18.0 mL/min (>60); GLUCOSE RANDOM 141.0 mg/dL (70-99); POTASSIUM,K 4.2 mEq/L (3.5-5.1); PROTEIN TOTAL,TP 6.4 g/dl (6.4-8.2); SODIUM,NA 141.0 mEq/L (136-145)
== END 2024-09-27 15:24 | disposition home or self-care (01) ==
LOC: JD.ED 11:19
DX: L08.9 Local infection of the skin and subcutaneous tissue, unspecified (principal); I11.0 Hypertensive heart disease with heart failure; I50.9 Heart failure, unspecified; E11.9 Type 2 diabetes mellitus without complications; Z88.0 Allergy status to penicillin; Z79.899 Other long term (current) drug therapy; Z86.16 Personal history of COVID-19
CPT/HCPCS: 36415; 80053; 85025; 86140; 87070; 87205; 96374; 99284; J0696

== ENCOUNTER 2024-10-20 12:44 | Emergency (ER) | payer MEDICARE ==
[2024-10-20 13:12] LABS: BASOPHILS ABSOLUTE AUTO 0.0 K/mm3 (0.0-0.2); BASOPHILS PERCENT AUTO 0.5 % (0.0-1.0); EOSINOPHILS ABSOLUTE AUTO 0.3 K/mm3 (0.0-0.4); EOSINOPHILS PERCENT AUTO 4.3 % (0.0-6.0); IMMATURE GRAN ABSOLUTE AUTO 0.02 K/mm3 (0.00-0.05); IMMATURE GRAN PERCENT AUTO 0.3 % (0.0-0.4); LYMPHOCYTES ABSOLUTE AUTO 1.2 K/mm3 (1.0-4.8); LYMPHOCYTES PERCENT AUTO 19.8 % (24.0-44.0); MEAN PLATELET VOLUME 11.1 fl (9.4-12.4); MONOCYTES ABSOLUTE AUTO 0.9 K/mm3 (0.0-0.8); MONOCYTES PERCENT AUTO 14.4 % (0.0-8.0); NEUTROPHILS ABSOLUTE AUTO 3.7 K/mm3 (1.8-7.7); NEUTROPHILS PERCENT AUTO 60.7 % (41.0-71.0); NRBC ABSOLUTE 0.00 (0.00-0.02); NRBC PERCENT 0.0 % (0.0-0.2); PLATELET COUNT,PLT 122 K/mm3 (150-400); RED BLOOD CELL COUNT 3.76 M/mm3 (4.52-5.90); WHITE BLOOD CELL COUNT,WBC 6.10 K/mm3 (3.9-11.3)
[2024-10-20 13:40] LABS: INR 3.41
[2024-10-20 13:46] LABS: A/G RATIO 1.0 (1-2); ALANINE AMINOTRANSFERASE,ALT 17 U/L (16-63); ASPARTATE AMNIOTRANSFERASE,AST 20 U/L (15-37); BILIRUBIN TOTAL 0.7 mg/dL (0.2-1.0); BLOOD UREA NITROGEN,BUN 75 mg/dL (7-18); CARBON DIOXIDE,CO2 27 mEq/L (21-32); CHLORIDE,CL 102 mEq/L (98-107); CREATININE 4.0 mg/dL (0.7-1.3); ESTIMATED GFR 14 mL/min (>60); GLUCOSE RANDOM 121 mg/dL (70-99); POTASSIUM,K 4.5 mEq/L (3.5-5.1); PROTEIN TOTAL,TP 6.7 g/dl (6.4-8.2); SODIUM,NA 140 mEq/L (136-145); TROPONIN I HIGH SENSITIVITY 26 pg/mL (<=76)
== END 2024-10-20 14:37 | disposition home or self-care (01) ==
LOC: JD.ED 12:44
DX: S01.01XA Laceration without foreign body of scalp, initial encounter (principal); N18.5 Chronic kidney disease, stage 5; I13.0 Hypertensive heart and chronic kidney disease with heart failure and stage 1 through stage 4 chronic kidney disease, or unspecified chronic kidney disease; I50.9 Heart failure, unspecified; N18.9 Chronic kidney disease, unspecified; E66.9 Obesity, unspecified; E11.9 Type 2 diabetes mellitus without complications; Z88.0 Allergy status to penicillin; Z79.899 Other long term (current) drug therapy; Z86.16 Personal history of COVID-19; Z90.49 Acquired absence of other specified parts of digestive tract; W19.XXXA Unspecified fall, initial encounter
CPT/HCPCS: 12001; 36415; 70450; 70450-26; 80053; 82947; 84484; 85025; 85610; 93005; 93010; 99284